=== PATIENT | male | born 1980 | race Caucasian/White ===

== ENCOUNTER 2025-06-27 22:59 | Inpatient (IN) | payer BC, SELFPAY ==
[2025-06-27] VITALS (30 sets, daily range): BP systolic 108–174; BP diastolic 68–105; BMI 31.4
[2025-06-27] MEDS: XYLOCAINE VISCOUS CUP 15 ML PO (18:59)
[2025-06-27] MEDS: MAALOX 30 ML PO (18:59)
[2025-06-27] MEDS: PEPCID 40 MG PO (18:59)
--- NOTE | 2025-06-27 19:10 | ED.GENMED ---
History of Present Illness
General
Chief Complaint: Chest Problem
Time Seen by Provider: 06/27/25 18:11
History of Present Illness
History of Present Illness:
45-year-old male with history of anxiety and hypertension presenting to the emergency department for burning discomfort in his chest. Patient reports that he woke up with burning discomfort in his midsternal chest which has progressed throughout
the day. Pain has overall improved. Does note history of indigestion in the past. Denies known cardiac history. Has seen a outpatient coder in the past due to similar symptoms and palpitations, reportedly normal stress test. Denies any radiation of
pain. Denies any difficulty breathing. Denies any diaphoresis or vomiting. Does note that last night he had [employer]. Denies additional acute medical complaints
Phy Exam
Physical Exam
Physical Exam:
General: Well-appearing, no clinical signs of dehydration, nontoxic and in no acute distress
HEENT: protecting airway
Neck: appears supple
CV: Normal heart rate, regular rhythm
Resp: No accessory muscle use, no increased work of breathing, lungs clear to auscultation bilaterally
Abd: Soft and non-distended, no tenderness to palpation
Extremities: No deformities, no swelling
Neuro: alert, no focal neurologic deficit
: deferred
Rectal: deferred
Psych: Normal affect
Skin: Intact
Scores
Heart Score for Chest Pain Patients
STEMI patient?: No
History: Slightly or Non-Suspicious
ECG: Normal
Age: >45 - <65 years
Risk Factors: 1 or 2 Risk Factors
Troponin: </= Normal Limit
Heart Score for Chest Pain Patients: 2
Heart Score Risk: 2.5% MACE over next 6 weeks
Course
Orders/Labs/Results
Orders:
Orders
06/27/25 17:33
Electrocardiogram (*1) Urgent
Reason for Study: Chest Pain
EKG- Treatment ONCE
06/27/25 18:33
Famotidine [Pepcid] 40 mg PO NOW STA
Mag Hydrox/Al Hydrox/Simeth [Maalox] 30 ml PO NOW STA
Viscous Lidocaine 2% [Xylocaine Viscous Cup] 15 ml PO ONCE ONE
06/27/25 18:58
Complete Blood Count/With Diff Urgent
Comprehensive Metabolic Panel Urgent
Troponin I Urgent
06/27/25 20:12
Aspirin Chewable [Low Strength Aspirin] 324 mg PO NOW STA
06/27/25 20:23
Nitroglycerin Sublingual [Nitrostat (Sublingual)] 0.4 mg SL [id number] PRN
06/27/25 20:29
CT Chest/abd/pelvis Angio W/wo Urgent
Comment:
Reason For Exam: r/o dissection
06/27/25 20:32
EKG- Treatment ONCE
06/27/25 20:33
D-Dimer Urgent
Fentanyl, Urine Urgent
PTT Urgent
Comment: Obtain baseline before beginning heparin infusion if not already collected
Troponin I Urgent
Urine Drug Abuse Screen Urgent
Date Specimen was Collected: 06/27/25
Time Specimen was Collected: 20:32
06/27/25 21:02
Electrocardiogram (*1) Urgent
Reason for Study: Chest Pain
EKG- Treatment ONCE
06/27/25 21:27
Nitroglycerin 100 mg/250 ml [Nitroglycerin Premix] 100 mg in 250 ml IV NOW
Currently infusing. Continue current dose and titrate:: Yes
Titrate to keep:: Chest Pain Free
Titrate by mcg/min:: 5 mcg/min, may increase by 10 mcg/min if dose > 20 mcg/min
Frequency of titrations (minutes):: every 3-5 minutes
Maximum dose in mcg/min:: 200
Begin to taper infusion when:: Remained at goal for 2hrs
Taper by mcg/min:: 5 mcg/min
Frequency of taper (minutes) if patient maintains goal:: 30
Taper to off?: Yes
If infusion off & no longer maintaining goal:: Contact Provider
06/27/25 21:46
Heparin 4,000 units IV NOW STA
Nursing to Place Non Medication Order As Directed
Physician Order: PTT 6 hours after initial start of Heparin infusion
Above order entered?: Yes
06/27/25 22:00
Electrocardiogram (*1) Urgent
Reason for Study: Chest Pain
Heparin 88424 Units/250 ml 25,000 units in 250 ml IV PER PROTOCOL
Weight to be used for heparin protocol in kilograms (kg):: 105
Protocol:: Cardiac Tx/Acute Coronary
PTT Goal Range to be used:: PTT 73 to 111 seconds
Order type:: Initial
INITIAL Infusion Dose (UNITS/KG/hr) & then follow protocol:: 12 units/kg/hr
Infusion Dose in UNITS/hr & then follow protocol (UNITS/hr):: 1,000
INFUSION RATE in mL/hr & then follow protocol (mL/hr):: 10
PTT less than or equal to 64 seconds:: Increase rate by 200 units/hr (+ 2 mL/hr)
PTT 64.1 to 72.9 seconds:: Increase rate by 100 units/hr (+ 1 mL/hr)
PTT 73 to 111 seconds:: Target Range. No change in rate.
PTT 111.1 to 130.9 seconds:: Decrease rate by 100 units/hr (- 1 mL/hr)
PTT 131 to 199.9 seconds:: HOLD for 1 hr. Then decrease rate by 200 units/hr (- 2 mL/hr)
PTT greater than or equal to 200 seconds:: HOLD for 2 hrs & Notify Provider. Then decrease by 200 units/hr (-
2 mL/hr)
Lab follow-up:: Each change, PTT q6h until 2 consecutive are therapeutic. Then PTT
daily.
06/28/25 04:00
PTT Routine
Abnormal Lab Results
06/27/25 06/27/25
18:58 20:33
RBC 4.47 L 10^6/uL
(4.70-6.10)
Absolute Neuts (auto) 8.0 H 10^3/uL
(1.4-6.5)
Absolute Monos (auto) 0.7 H 10^3/uL
(0.1-0.6)
Neutrophils % 78.0 H %
(42.2-75.2)
Lymphocytes % 14.3 L %
(20.5-51.1)
Sodium 134 L mmol/L
(135-145)
Glucose 103 H mg/dl
(70-99)
AST 153 H U/L
(17-59)
Troponin I 10.300 H* ng/ml 14.400 H* D ng/ml
Ur Oxycodone Screen Positive H
(Negative)
06/27/25 18:58
06/27/25 18:58
Vital Signs
Initial and Last Documented VS:
Initial Vital Signs
Temp Pulse Resp BP Pulse Ox
98.8 F 103 16 174/105 99
06/27/25 17:31 06/27/25 17:31 06/27/25 17:31 06/27/25 17:31 06/27/25 17:31
Last Documented Vital Signs
Temp Pulse Resp BP Pulse Ox
98.8 F 69 11 128/92 92
06/27/25 17:31 06/27/25 22:15 06/27/25 22:15 06/27/25 22:10 06/27/25 22:15
MDM/Problems Addressed
MDM/Problems Addressed:
45-year-old male with history of anxiety and hypertension presenting for midsternal chest burning. Vital signs on arrival are significant for hypertension and tachycardia, however improved without intervention. Patient also noted to be anxious
upon arrival.
On exam, patient is resting comfortably, no acute distress. Unremarkable cardiac and pulmonary exam. EKG obtained on arrival, which does show some ST depressions inferiorly, however without significant change from prior. Overall suspect likely
gastric pathology as etiology of patient's symptoms. Lower suspicion for ACS. Patient however does have some cardiac risk factors so we will screen further with laboratory analysis and troponin. Will treat with a GI cocktail and reassess for
improvement.
20:00 - Patient's troponin is elevated at 10 with concern for NSTEMI. Will repeat EKG.
20:15- Repeat EKG unchanged. Patient is still having some chest pain with concern at this time for NSTEMI. In discussion with cardiology, recommendation for CT chest to rule out dissection, as well as D-dimer. Will obtain. Will try nitro for
pain control.
21:45 - Pain is slightly improved after stopping all nitro, starting nitro drip. Troponin is now increased to 14. EKG still without STEMI criteria, however subtle elevation to aVR. In discussion with cardiology, recommending heparin, will come in
to evaluate with likely plan for catheterization tonight
22:10 -cardiology to bedside with plan for catheterization.
*Pulse Oximetry
SaO2: 99
Oxygen Mode of Delivery: Room air
Patient hypoxic: no
*EKG
Interpreted by ED Provider?: Yes
EKG Intrepretation Date: 06/27/25
EKG Intrepretation Time: 19:12
Interpretation: normal
Comparison EKG: no changes (06/15/22)
Heart Rate: 87
Rate: normal
Rhythm: sinus
[place]: normal axis
Interval: normal interval
QRS Pattern: normal QRS
Ischemia: non-specific ST changes
*Critical Care Note
Total Time (30-74mins, 75-104mins- exclusive of procedures): 65
comment:
The high probability of a clinically significant, sudden or life threatening deterioration of the cardiovascular system(s), NSTEMI, required my full and direct attention, intervention and personal management. The aggregate critical care time was 40
minutes. This time is in addition to time spent performing reported procedures but includes the following:
[x] Data Review and interpretation
[x] Patient assessment and monitoring of vital signs
[x] Documentation
[x] Medication orders and management
ED Attending Note
-
Portions of this chart may have been created with voice recognition software.� Occasional wrong word or��sound alike� substitutions may have occurred due to the inherent limitations of voice recognition software.
Discharge Plan
Departure
Referrals:
Rip Rucker DO [Family Provider, [facility]]
Interventions
Interventions:
*Risk Screen - Suicide Last Done: 06/27/25 18:26
*Neglect/Abuse Screening Last Done: 06/27/25 18:26
*ED- Fall Risk Assessment Last Done: 06/27/25 18:26
*ED COVID-19 Vaccine History Last Done: 06/27/25 18:26
*ED Influenza Vaccine History Last Done: 06/27/25 18:26
ED- Cardiac Assessment Last Done: 06/27/25 18:26
ED- Pulmonary Assessment Last Done: 06/27/25 18:26
Discharge Date and Time
Print Language: ARABIC
[2025-06-27 19:14] LABS: Hematocrit 39.5 % (39.0-52.0); Hemoglobin 13.5 g/dL (13.0-18.0); Mean Corp Hgb Conc. 34.2 g/dL (33.0-37.0); Mean Corpuscular Volume 88.4 fL (80.0-94.0); Nucleated Red Blood Cells % 0 % (-); Platelet Count 234 10^3/uL (130-400); Red Cell Dist. Width 12.3 % (11.5-14.5)
[2025-06-27 19:34] LABS: ALT (SGPT) 46 U/L (0-50); AST (SGOT) 153 U/L (17-59); Albumin 4.5 g/dl (3.5-5.0); Alkaline Phosphatase 43 U/L (38-126); Blood Urea Nitrogen 10 mg/dl (9-20); Calcium 9.5 mg/dl (8.4-10.2); Carbon Dioxide 27 mmol/L (22-30); Chloride 103 mmol/L (98-107); Glucose 103 mg/dl (70-99); Potassium 4.4 mmol/L (3.5-5.1); Sodium 134 mmol/L (135-145); Total Protein 7.3 g/dl (6.3-8.2); eGFR > 60.00
[2025-06-27 19:50] LABS: Troponin I 10.300 ng/ml
[2025-06-27] MEDS: LOW STRENGTH ASPIRIN 324 MG PO (20:18)
[2025-06-27] MEDS: NITROSTAT (SUBLINGUAL) 0.4 MG SL ×3 (20:34→21:20)
[2025-06-27 20:54] LABS: D-Dimer 0.33 ug/mlFEU (0.00-0.50)
[2025-06-27 21:11] LABS: Troponin I 14.400 ng/ml
[2025-06-27] MEDS: NITROGLYCERIN PREMIX 250 IV (21:55)
[2025-06-27] MEDS: HEPARIN 4000 UNITS IV (21:56)
[2025-06-27] MEDS: HEPARIN 25000 UNITS/250 ML IV (21:59)
--- NOTE | 2025-06-27 22:20 | CON.CAR ---
Consultation
Consultation Request
Date/Time Consultation Requested: June 27, 2025
Date/Time Consultation Performed: June 27, 2025
Requesting Provider: Emergency department
Performing Provider: Dr Rip Porter
Reason for Consultation: Non-ST segment elevation myocardial infarction
Medical History
-
Chief Complaint: Chest burning
History of Present Illness:
45-year-old male who presents to the emergency department approximately 12 hours after onset of chest burning sensation which started approximately 8 AM.
He tells me he essentially woke up with the pain. He describes that due to the pain he really did not exert himself much but with routine activity/walking around his house pain did not worsen. He feels pain may have improved somewhat but not
resolved when he would lay flat. He denies any trauma to his chest. He denies any fevers chills night sweats.
Evaluation in the emergency department has included assessment of troponin with initial troponin of 10. Attempts to make him pain-free included sublingual and then intravenous nitroglycerin which improved but did not cause resolution of his pain
(pain reduced from a 6 or 7 down to a 3). He has also been on intravenous heparin after receiving aspirin.
Initial EKG with minimal ST depression in the inferior leads as well as ST elevation in aVR and second EKG is similar.
D-dimer is within the normal range.
CT scan of the chest with and without contrast finds no aortic dissection or other acute aortic syndromes. Coronary artery calcifications are noted. There is also the finding of ' well-circumscribed low-attenuation cystic lesion measuring 6 x 5.4
x 3.9 cm in the middle posterior mediastinum, subcarinal in location, to the right of the esophagus and posterior to the heart without enhancement or soft tissue nodularity'. It is noted that this may reflect a bronchogenic cyst, pericardial cyst
or esophageal duplication cyst possibly other congenital cyst.
Cardiology evaluation is requested by the emergency department.
Tox screen obtained. Only positive is oxycodone. Patient describes that he has had chronic low back pain for which he occasionally does take oxycodone denies cocaine and other stimulants.
Past Medical History
Past Medical History: None
Social History
Tobacco: Former Smoker (Smoked for 14 years approximately half a pack per day, stopped 3 years ago)
Alcohol: None (Denies)
Drug: None (Denies, however oxycodone level is positive)
Personal:
Living: With Family
Family History
Family History: Reviewed & Not Pertinent
Allergies / Home Medications
Allergy/AdvReac Type Severity Reaction Status Date / Time
No Known Allergies Allergy Verified 06/27/25 17:33
Review of Systems
-
History Source: Patient
All other systems: Negative unless noted
Constitutional: No Symptoms
EENT: No Symptoms
Respiratory: No Symptoms
Cardiac: Chest Pain
Abdomen/GI: No Symptoms
: No Symptoms
Musculoskeletal: No Symptoms
Skin: No Symptoms
Neurological: No Symptoms
Endocrine: No Symptoms
Hematologic/Lymphatic: No Symptoms
Physical Exam
Vital Signs
Temp Pulse Resp BP Pulse Ox
98.8 F 70 19 126/89 99
06/27/25 17:31 06/27/25 22:05 06/27/25 22:05 06/27/25 22:05 06/27/25 22:05
Lab Results
06/27/25 18:58
06/27/25 18:58
Troponin I 14.400 ng/ml H* D 06/27/25 20:33
Physical Exam
General: Well Developed, Well Nourished and No Apparent Distress (He is laying in the stretcher in the emergency department bed smiling and appears comfortable.)
HEENT: Normocephalic, Anicteric and Moist Mucous Membranes
Respiratory: Clear and Non Labored Respirations
Cardiac: S1/S2, Regular Rhythm and Murmur (Grade 1/6 apical holosystolic murmur and no rubs)
Breast: Deferred by me
GI: Soft, Non Tender, Non Distended and Normal Bowel Sounds
Rectal: Deferred by Provider
Musculoskeletal: No Clubbing, No Cyanosis and No Edema
Skin: Warm and Dry
Neuro: Awake, Alert, Oriented, AO x 3 and No Motor Deficits
Psych: Calm
Impression / Plan
-
Impression:
Concern for acute coronary syndrome
While his chest pain is somewhat atypical, chest pain improved but not completely resolved with antianginals including intravenous nitroglycerin which he is now on and in addition he has had rising troponins (10 --> 14) with abnormal ECGs. CT scan
of the chest shows no aortic dissection and no pericardial effusion. D-dimer is within the normal range.
While it is not clear that this is an acute coronary syndrome, there is enough concern with ongoing chest pain and rising troponin values and no other clear etiology that this may indeed be an acute coronary syndrome.
Will plan for urgent coronary angiography
Continue IV nitroglycerin titrated to attempt to make him pain-free
Continue IV heparin
Further evaluation and management decisions once we have results of coronary angiography
Check fasting lipid profile in AM
Of note, there is this likely incidental finding of 'well-circumscribed low-attenuation cystic lesion measuring 6 x 5.4 x 3.9 cm in the middle posterior mediastinum, subcarinal in location, to the right of the esophagus and posterior to the heart
without enhancement or soft tissue nodularity' which may require her further evaluation at some point, either inpatient or outpatient.
Discussed with patient, discussed with ER physician and also discussed with nursing home admissions director.
Total time spent today was 75 minutes in preparing to see the patient, seeing the patient and coordination of care. This included review of recent laboratory evaluations, cardiact testing, imaging studies, primary care records, specialty
consultations, hospital records, as well as personally interviewing and examining the patient, which included discussion of their tests, review/ordering medications, and communicating with other healthcare professionals and also treatment planning
as well as counseling.
Total time does not include separately billed tests performed on this date of service.
Data Reviewed
-
EKG: Tracing Personally Visualized and interpreted
Radiology: Image Personally Visualized and interpreted and Report Reviewed by me
CT Scan: Image Personally Visualized and interpreted and Report Reviewed by me
Labs: Labs Reviewed by me, Discussed with Physician and Discussed with Patient
[2025-06-27 22:23] LABS: APTT 25.1 Sec (23.4-35.0)
[2025-06-27 23:38] LABS: ACT-LR - POC 237 Seconds (116-155)
--- NOTE | 2025-06-27 23:56 | ITS.CL.ANGIO ---
Public Space Attendant - Angioplasty
Angioplasty
Procedure Report:
LEFT HEART CATHETERIZATION
Date of Procedure: June 27, 2025
Procedures performed:
1: Coronary angiography
2: Left ventriculography
3: Percutaneous coronary intervention of the right coronary artery with placement of a 3.5 x 26 mm [place] drug-eluting stent postdilated at high-pressure with a 3.75 mm diameter noncompliant balloon
Primary Care Provider: Dr. Rip Rucker
Primary Training Specialist: Dr. Rip Porter
INDICATION: The patient is a 45-year-old male with no past medical history presents with atypical chest pain which has persisted throughout the day. EKG is benign but cardiac enzymes are rising and chest pain has persisted so we elected to proceed
with cardiac catheterization.
ACCESS: The patient was prepped and draped in usual sterile fashion. A 6 Cym[place]es sheath was placed in the right radial artery using the Seldinger over the wire technique.
HEMODYNAMIC FINDINGS (mmHg):
LV(s/d,EDP): 125/17, 29
Ao(s/d,m): 120/84, 101
ANGIOGRAPHIC FINDINGS:
Single-plane Left Ventriculography in VALDEZ Projection: Mild anterolateral hypokinesis. Subtle angiographic suggestion of lateral hypokinesis on the VALDEZ projection. Overall visually estimated ejection fraction 50%. No significant mitral
regurgitation.
Coronary Angiography:
Dominance: Right
Left Main: Large-caliber with mild smooth ostial 30% stenosis.
Left Anterior Descending: The left anterior descending artery is a relatively large caliber vessel that gives rise to 1 major bifurcating diagonal branch that takes off from the midportion. The mid LAD has a smooth 50 to 60% stenosis just before
the takeoff of the major diagonal branch. All vessels have normal distal flow.
Left Circumflex: The left circumflex is a relatively large caliber nondominant vessel that is occluded in the proximal/mid segment. Faint filling of a large distal OM is noted.
Right Coronary: The right coronary artery is a large-caliber dominant vessel that gives rise to a large caliber posterior descending artery and 2 large caliber posterior left ventricular branches. These vessels have mild luminal irregularities with
no evidence of focal obstructive disease.
Percutaneous Coronary Intervention (PCI): In light of the above angiographic findings, I elected to proceed with a PCI of the culprit circumflex. The patient had been pretreated with aspirin and unfractionated heparin. Additional unfractionated
heparin was given. A loading dose of ticagrelor was given at the end of the procedure on the table. A double bolus of Integrilin was given due to the high thrombus burden. A 6 Cymraes XB 3.5 guiding catheter was used to engage the left main. A
Hi-Torque floppy wire was advanced across the occlusion and predilation was performed with a 2.5 mm balloon. Next a 3.5 x 26 mm [place] drug-eluting stent was deployed primarily into the largest distal branch. The stent was postdilated with a 3.75 mm
diameter noncompliant balloon inflated to 18 rio. This was done in a distal to proximal fashion taking care to stay within the stented margins.
FINAL RESULT: 0% in-stent residual stenosis with an outstanding angiographic result and FANNY-3 flow in all major distal vessels. There were some small jailed vessels that have sluggish flow noted.
Fluoroscopy Time (min): 8.7
Radiation Dose (mGy): 875
DAP (Gy.cm2): 55
Closure device: None. A TR band was applied for hemostasis at the right wrist.
Complications: None.
ASSESSMENT:
1: Successful PCI of the culprit circumflex occlusion with placement of a drug-eluting stent as described above.
2: Elevated left ventricular filling pressures.
3: Preserved to mildly depressed LV systolic function.
CONCLUSIONS and RECOMMENDATIONS:
1: Routine post non-STEMI and post drug-eluting stent medical therapy and monitoring. Continue ticagrelor 90 mg p.o. twice daily and aspirin.
2: Serial cardiac enzymes and telemetry monitoring.
3: Medical therapy for coronary artery disease.
Dorothea Durbin M.D.
[2025-06-28] VITALS (10 sets, daily range): BP systolic 129–159; BP diastolic 77–93; PULSE 68; BMI 32.0
[2025-06-28] MEDS: NSS 1000 IV (02:58)
[2025-06-28] MEDS: LIPITOR 80 MG PO ×2 (02:59→17:16)
[2025-06-28 03:20] LABS: APTT 60.2 Sec (23.4-35.0)
[2025-06-28 03:29] LABS: Blood Urea Nitrogen 9 mg/dl (9-20); Calcium 9.2 mg/dl (8.4-10.2); Carbon Dioxide 26 mmol/L (22-30); Chloride 105 mmol/L (98-107); Estimated Creatinine Clearance > 125 ml/min; Glucose 135 mg/dl (70-99); HDL Cholesterol 57 mg/dl; LDL Cholesterol, Calculated 150 mg/dl; Magnesium 2.1 mg/dl (1.6-2.3); Potassium 4.2 mmol/L (3.5-5.1); Sodium 136 mmol/L (135-145); Very Low Density Lipoprotein 14 mg/dl (0-30); eGFR > 60.00
--- NOTE | 2025-06-28 03:40 | PTCARENOTE ---
Pt admitted to room 2244 post cath at approx 0015. aaox3, R wrist R band intact and inflated, good radial pulses, right hand pink and warm, Pox 98%. Post procedure EKG obtained. Pt c/o pain 2-3/10 mid chest stating 'It feels a lot better than
before but still have some pain'. Dr. Durbin at bedside to see pt after procedure. IVF's ordered and infusing. SR on tele monitor, HR 60-70's. Pt oriented to room and call light, updated on POC and in agreement. Call holt within reach.
[2025-06-28 04:01] LABS: TSH 0.08 uIU/ml (0.47-4.68)
[2025-06-28 04:12] LABS: Troponin I 130.000 ng/ml
[2025-06-28] MEDS: ASPIR LOW (ENTERIC COATED) 81 MG PO (09:23)
[2025-06-28] MEDS: COZAAR 25 MG PO (09:23)
[2025-06-28] MEDS: BRILINTA 90 MG PO ×2 (09:23→19:37)
[2025-06-28 09:24] LABS: Troponin I 50.000 ng/ml
--- NOTE | 2025-06-28 09:41 | W.PN.CARDCBS ---
Today's Communication / Plan
-
Continue post PCI medical management
Check echocardiogram in the morning
Impression / Plan
-
Impression/plan:
Non-ST segment elevation myocardial infarction
Successful PCI of culprit left circumflex occlusion with placement of drug-eluting stent
Troponin peaked to 130 with subsequent troponin down to 50 this morning
ECG stable right bundle branch block
Continued ticagrelor 90 mg p.o. twice daily and aspirin 81 mg daily
Atorvastatin 80 mg daily
Check echocardiogram on Sunday
Essential hypertension
Blood pressure better controlled on losartan 25 mg daily, continue
There is incidental finding of 'well-circumscribed low-attenuation cystic lesion measuring 6 x 5.4 x 3.9 cm in the middle posterior mediastinum, subcarinal in location, to the right of the esophagus and posterior to the heart without enhancement or
soft tissue nodularity'
There can be consideration for further evaluation at some point, likely as outpatient
Discussed with patient as well as his family at the bedside. All of their questions have been answered.
Total time spent today was 51 minutes in preparing to see the patient, seeing the patient and coordination of care. This included review of recent laboratory evaluations, cardiact testing, imaging studies, primary care rtecords, specialty
consultations, hospital records, as well as personally interviewing and examining the patient, which included discussion of their tests, review/ordering medications, and communicating with other healthcare professionals and also treatment planning
as well as counseling.
Total time does not include separately billed tests performed on this date of service.
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
Subjective
Date of Service: June 28, 2025
He tells me that he feels great this morning, no further chest pain. No shortness of breath.
Objective
Labs:
06/27/25 18:58
06/28/25 02:53
Labs
Hgb 13.5 g/dL (13.0-18.0) 06/27/25 18:58
Hct 39.5 % (39.0-52.0) 06/27/25 18:58
Plt Count 234 10^3/uL (130-400) 06/27/25 18:58
APTT 60.2 Sec (23.4-35.0) H 06/28/25 02:53
Sodium 136 mmol/L (135-145) 06/28/25 02:53
Potassium 4.2 mmol/L (3.5-5.1) 06/28/25 02:53
BUN 9 mg/dl (9-20) 06/28/25 02:53
Creatinine 0.8 mg/dL (0.7-1.3) 06/28/25 02:53
Glucose 135 mg/dl (70-99) H 06/28/25 02:53
Troponins
06/27/25 06/27/25 06/28/25
18:58 20:33 02:53
Troponin I 10.300 H* 14.400 H* D 130.000 H* D
06/28/25 06/28/25
06:00 08:48
Troponin I Cancelled 50.000 H* D
Vital Signs and I&O:
Vital Signs
Temp Pulse Resp BP Pulse Ox
98.9 F 84 17 127/83 99
06/28/25 07:09 06/28/25 07:09 06/28/25 07:09 06/27/25 23:00 06/28/25 07:09
Vital Signs
Temp Pulse Resp BP Pulse Ox
98.9 F 84 17 127/83 99
06/28/25 07:09 06/28/25 07:09 06/28/25 07:09 06/27/25 23:00 06/28/25 07:09
Intake & Output
06/26/25 06/27/25 06/28/25 06/29/25
06:59 06:59 06:59 06:59
Intake Total 500 / 500
Output Total 1000 / 1000
Balance -500 / -500
Physical Exam
Physical Exam
Well-appearing, sitting up in bed smiling no acute distress.
Regular rate and rhythm normal S1 and S2 no S3 no S4 is grade 1/6 apical holosystolic murmur no rubs
lung clear to auscultation bilaterally without wheezes rales or rhonchi
Abdomen soft nontender nondistended with normoactive bowel sounds
Extremities no clubbing cyanosis or edema
Neurologic exam is nonfocal
--- NOTE | 2025-06-28 14:09 | PTCARENOTE ---
Assumed care of the pt @ 0700. Pt is AAOx3 SR on the monitor VSS. Denies cp. POC discussed with pt. verbalized understanding. Call holt within reach.
[2025-06-28 15:24] LABS: Troponin I 30.500 ng/ml
--- NOTE | 2025-06-28 21:13 | PTCARENOTE ---
Patient received at change of shift resting in the bed. Denies chest pain or pressure at this time. Sinus rhythm on telemetry. Oxygen saturation 99% on room air. Right radial cath site with gauze and tegaderm C/D/I, radial pulse palpable. Call holt
within reach. Plan of care discussed. Call holt within reach. Care ongoing.
[2025-06-29 03:02] VITALS: BP 124/94
[2025-06-29 03:12] VITALS: BP 129/91
[2025-06-29 03:37] LABS: Hematocrit 45.3 % (39.0-52.0); Hemoglobin 15.4 g/dL (13.0-18.0); Mean Corp Hgb Conc. 34.0 g/dL (33.0-37.0); Mean Corpuscular Volume 90.8 fL (80.0-94.0); Nucleated Red Blood Cells % 0 % (-); Platelet Count 258 10^3/uL (130-400); Red Cell Dist. Width 12.8 % (11.5-14.5)
[2025-06-29 04:00] LABS: Blood Urea Nitrogen 13 mg/dl (9-20); Calcium 9.4 mg/dl (8.4-10.2); Carbon Dioxide 26 mmol/L (22-30); Chloride 108 mmol/L (98-107); Estimated Creatinine Clearance > 125 ml/min; Glucose 109 mg/dl (70-99); Magnesium 2.3 mg/dl (1.6-2.3); Potassium 4.8 mmol/L (3.5-5.1); Sodium 139 mmol/L (135-145); eGFR > 60.00
[2025-06-29 04:15] LABS: Troponin I 19.300 ng/ml
[2025-06-29 08:03] LABS: ACT-LR - POC > 397 Seconds (116-155)
--- NOTE | 2025-06-29 08:15 | PTCARENOTE ---
Assumed care of pt from prev nsg shift; Pt AAOX3 w/no c/o CP or SOB. Pt's VSS w/HR in the 80's & BP 121/97 this AM. Pt w/R radial site URBANO w/no signs or symptoms of bleeding or hematoma. Pt awaiting ECHO this AM & anticipating D/C today. Discussed
CAD booklet w/pt. Pt w/call holt within reach & plan ongoing.
[2025-06-29 08:21] VITALS: BP 140/95
[2025-06-29 08:22] VITALS: BP 121/97
--- NOTE | 2025-06-29 09:19 | W.PN.CARDCBS ---
Addendum entered and electronically signed by Leyla Dean PA-C 06/29/25 13:45:
dictated d/c summary, #[id number]
Addendum entered and electronically signed by Leyla Dean PA-C 06/29/25 12:53:
Below documentation for stent size should be 3.5 x 26 mm size throughout note
Addendum entered and electronically signed by Jacob Munguia MD 06/29/25 10:53:
I saw and examined the patient.
The FAMILY HELPER or PA's note was reviewed and I agree with the note.
Comment: General: Well developed, well nourished in NAD.
Neck: Supple, no JVD, HJR, carotids +2 B/L, no bruits bilaterally.
Heart: Non displaced PMI, RRR, no murmurs, No S3, S4, no rubs.
Lungs: Clear to auscultation bilaterally, no wheeze, rhonchi, rubs bilaterally,
normal expiratory phase.
Extremities: No clubbing, cyanosis or edema bilaterally.
Neuro: Grossly nonfocal, awake, alert and oriented x3.
EF normal. Stable cardiology status for discharge. Discussion with patient and at bedside. Follow-up will be arranged
Original Note:
Today's Communication / Plan
-
Continue aspirin and Brilinta for 1 year uninterrupted
New to atorvastatin
Start Toprol, continue lisinopril
Cardiac rehab consultation
Echo pending if stable anticipate discharge later today
Impression / Plan
-
PCP: Rip Rucker
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 Rip Porter
Impression:
Presented 06/27/2025 with persistent chest pain
Non-ST segment elevation myocardial infarction, with abnormal troponin peaked 130
Successful PCI of culprit left circumflex occlusion with placement of drug-eluting stent 2.5 x 26 mm [place] SYADA 06/27/2025
Troponin peaked to 130 with subsequent troponin down to 50 this morning
Incidental finding of low-attenuation cystic lesion in middle posterior mediastinum, subcarinal location
Right bundle branch block
Hypertension
Cardiac catheterization 06/27/2025: LM ostial 30% smooth stenosis. LAD: Smooth 50 to 60% mid stenosis before takeoff of major diagonal. Left circumflex: Proximal/mid occlusion s/p 3.5 x 26 mm [place] SAYDA. RCA: LI. Left Ventriculography in VALDEZ
Projection: Mild anterolateral hypokinesis. Subtle angiographic suggestion of lateral hypokinesis on the [place] projection. Overall visually estimated ejection fraction 50%. No significant mitral regurgitation. HEMODYNAMIC FINDINGS (mmHg):
LV(s/d,EDP): 125/17, 29; Ao(s/d,m): 120/84, 101
Echo 06/29/2025: Pending but preliminary report EF 50 to 55% with lateral hypokinesis
Plan:
Presented 06/27/2025 with persistent chest pain and ruled in with NSTEMI
Successful PCI of culprit left circumflex occlusion with placement of drug-eluting stent 2.5 x 26 mm [place] SAYDA 06/27/2025
Troponin peaked to 130 with subsequent troponin down to 19.3 this morning 06/29
Continued ticagrelor 90 mg p.o. twice daily and aspirin 81 mg daily, uninterrupted for 1 year
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
ECG stable showing sinus rhythm w/ right bundle branch block, repeat this am
Echo pending
Cardiac rehab consultation
Hyperlipidemia prestatin lipids 06/28/2025 : TC 221, HDL 57, LDL 150, triglycerides 74. Now on high dose atorvastatin 80 mg daily
Check hemoglobin A1c - pending
Essential hypertension
Blood pressure better controlled on losartan 25 mg daily, continue
There is incidental finding of 'well-circumscribed low-attenuation cystic lesion measuring 6 x 5.4 x 3.9 cm in the middle posterior mediastinum, subcarinal in location, to the right of the esophagus and posterior to the heart without enhancement or
soft tissue nodularity'
There can be consideration for further evaluation at some point, likely as outpatient
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
If echo stable anticipate discharge later today
Outpatient cardiology follow-up has been arranged
Admission HPI 06/27/2025:
45-year-old male who presents to the emergency department approximately 12 hours after onset of chest burning sensation which started approximately 8 AM.
He tells me he essentially woke up with the pain. He describes that due to the pain he really did not exert himself much but with routine activity/walking around his house pain did not worsen. He feels pain may have improved somewhat but not
resolved when he would lay flat. He denies any trauma to his chest. He denies any fevers chills night sweats.
Evaluation in the emergency department has included assessment of troponin with initial troponin of 10. Attempts to make him pain-free included sublingual and then intravenous nitroglycerin which improved but did not cause resolution of his pain
(pain reduced from a 6 or 7 down to a 3). He has also been on intravenous heparin after receiving aspirin.
Initial EKG with minimal ST depression in the inferior leads as well as ST elevation in aVR and second EKG is similar.
D-dimer is within the normal range.
CT scan of the chest with and without contrast finds no aortic dissection or other acute aortic syndromes. Coronary artery calcifications are noted. There is also the finding of ' well-circumscribed low-attenuation cystic lesion measuring 6 x 5.4
x 3.9 cm in the middle posterior mediastinum, subcarinal in location, to the right of the esophagus and posterior to the heart without enhancement or soft tissue nodularity'. It is noted that this may reflect a bronchogenic cyst, pericardial cyst
or esophageal duplication cyst possibly other congenital cyst.
Cardiology evaluation is requested by the emergency department.
Tox screen obtained. Only positive is oxycodone. Patient describes that he has had chronic low back pain for which he occasionally does take oxycodone denies cocaine and other stimulants
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
Subjective
Date of Service: June 29, 2025
Patient seen and examined. Patient reports he is feeling well. No further chest discomfort or problems with shortness of breath. He has been able to ambulate around the unit without difficulty.
Objective
Labs:
06/29/25 03:10
06/29/25 03:10
Labs
Hgb 15.4 g/dL (13.0-18.0) 06/29/25 03:10
Hct 45.3 % (39.0-52.0) 06/29/25 03:10
Plt Count 258 10^3/uL (130-400) 06/29/25 03:10
APTT 60.2 Sec (23.4-35.0) H 06/28/25 02:53
Sodium 139 mmol/L (135-145) 06/29/25 03:10
Potassium 4.8 mmol/L (3.5-5.1) 06/29/25 03:10
BUN 13 mg/dl (9-20) 06/29/25 03:10
Creatinine 0.9 mg/dL (0.7-1.3) 06/29/25 03:10
Glucose 109 mg/dl (70-99) H 06/29/25 03:10
Troponins
06/27/25 06/27/25 06/28/25
18:58 20:33 02:53
Troponin I 10.300 H* 14.400 H* D 130.000 H* D
06/28/25 06/28/25 06/28/25
06:00 08:48 14:41
Troponin I Cancelled 50.000 H* D 30.500 H* D
06/29/25
03:10
Troponin I 19.300 H*
Vital Signs and I&O:
Vital Signs
Temp Pulse Resp BP Pulse Ox
97.8 F 86 16 121/97 99
06/29/25 08:20 06/29/25 08:22 06/29/25 08:20 06/29/25 08:22 06/29/25 08:20
Vital Signs
Temp Pulse Resp BP Pulse Ox
97.8 F 86 16 121/97 99
06/29/25 08:20 06/29/25 08:22 06/29/25 08:20 06/29/25 08:22 06/29/25 08:20
Intake & Output
06/27/25 06/28/25 06/29/25 06/30/25
06:59 06:59 06:59 06:59
Intake Total 500 / 500 960 / 960
Output Total 1000 / 1000
Balance -500 / -500 960 / 960
Physical Exam
Physical Exam
GEN: No distress, awake, Ox3
HEENT: supple, anicteric, mmm
LUNGS: CTA, no wheezes/rales
CV: Reg, S1/S2, no murmur, rub or gallop
ABD: soft, BS+, NT/ND
EXT: No edema, warm, dry, pink. Right radial access site without hematoma or ecchymosis. +2 radial and ulnar pulse with good hand perfusion
NEURO: Gross non-focal
SKIN: No rash, warm, dry, pink
[2025-06-29] MEDS: BRILINTA 90 MG PO (10:13)
[2025-06-29] MEDS: ASPIR LOW (ENTERIC COATED) 81 MG PO (10:13)
[2025-06-29] MEDS: COZAAR 25 MG PO (10:13)
[2025-06-29 11:11] VITALS: BP 133/84
[2025-06-29] MEDS: TOPROL XL 25 MG PO (12:09)
--- NOTE | 2025-06-29 12:19 | CM ---
spoke to pt in room, he is prev indep, lives with his in a 2 smedically stable.t[address] home with 4 steps to enter. he denies any dc planning or dme's. plan is for dc to home when medically stable.
--- NOTE | 2025-06-29 13:00 | PTCARENOTE ---
D/C'd pt's IV line & surveillance system monitor. Discussed D/C instructions w/pt & pt's spouse. Pt walked out w/staff escort. Pt's spouse drove him home.
[2025-06-29 13:13] LABS: Glycohemoglobin (HgbA1c) 5.5 % (4.0-5.6)
--- NOTE | 2025-06-29 13:45 | W.DS.TRANS ---
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
-
Discharge Instructions:
Discharge Diagnosis/Procedures NSTEMI, Circumflex drug eluting stents
Diet Low Cholesterol
Additional Activity No lifting greater than 10 lbs for 3 days and
nothing greater than 25 lbs for 1 week
Driving Restrictions As prior to admission
Bathing Restrictions None
Other Services Cardiac Rehab
Instructions:
Stand-Alone Forms: DC Instructions- Cath/EP Lab
Changes to Home Medications: Yes
Discharge Medications:
DC Medications w/original date entered in [facility]
aspirin 81 mg tablet,delayed release 81 mg PO DAILY #1 tab 06/29/25
atorvastatin 80 mg tablet 80 mg PO QPM #90 tabs 06/29/25
lisinopril 10 mg tablet 10 mg PO DAILY Blood Pressure #90 tabs 06/29/25
metoprolol succinate 25 mg tablet,extended release 24 hr 25 mg PO DAILY #90 tabs 06/29/25
ticagrelor 90 mg tablet 90 mg PO BID #180 tabs 06/29/25
Home Medication Changes
New to ASA, Atorvastatin, Toprol, Ticagrelor
Pending Results: No
Additional Pending Results:
41
== END 2025-06-29 13:41 | disposition home or self-care (01) | DRG 322 ==
LOC: IVU 22:59
PROVIDERS: Internal Medicine Interventional Cardiology; ADMITTING PHYSICIAN Internal Medicine Cardiovascular Disease; EMERGENCY PHYSICIAN Student in an Organized Health Care Education/Training Program; FAMILY PHYSICIAN Family Medicine
PROC: 4A023N7 Measurement of Cardiac Sampling and Pressure, Left Heart, Percutaneous Approach (ICD-10-PCS; 2025-06-27)
PROC: B2111ZZ Fluoroscopy of Multiple Coronary Arteries using Low Osmolar Contrast (ICD-10-PCS; 2025-06-27)
PROC: 027034Z Dilation of Coronary Artery, One Artery with Drug-eluting Intraluminal Device, Percutaneous Approach (ICD-10-PCS; 2025-06-27)
DX: I21.4 Non-ST elevation (NSTEMI) myocardial infarction (principal); I10 Essential (primary) hypertension; F41.9 Anxiety disorder, unspecified; I25.10 Atherosclerotic heart disease of native coronary artery without angina pectoris; G89.29 Other chronic pain; M54.50 Low back pain, unspecified; I45.10 Unspecified right bundle-branch block; E78.5 Hyperlipidemia, unspecified; Z87.891 Personal history of nicotine dependence
CPT/HCPCS: 71275; 74174; 80048; 80053; 80061; 80306; 80307; 83036; 83735; 84439; 84443; 84484; 85025; 85347; 85379; 85730; 93005; 93306; 93458; 94660; 96365; 96367; 99291; C1725; C1769; C1874; C1887; C1894; C9600; J0153; J1327; Q9967

== ENCOUNTER 2025-07-24 16:06 | Outpatient (RCR) | payer BC, SELFPAY | END 2025-07-24 23:59 | disposition home or self-care (01) | LOC: CRHB 16:06 | PROVIDERS: ATTENDING PHYSICIAN Internal Medicine Cardiovascular Disease | DX: I25.2 Old myocardial infarction (principal); I25.10 Atherosclerotic heart disease of native coronary artery without angina pectoris (principal); Z95.5 Presence of coronary angioplasty implant and graft | CPT/HCPCS: 93797; 93798 ==

== ENCOUNTER 2025-08-19 09:42 | Outpatient (RCR) | payer BC, SELFPAY | END 2025-08-19 23:59 | disposition home or self-care (01) | LOC: CRHB 09:42 | PROVIDERS: ATTENDING PHYSICIAN Internal Medicine Cardiovascular Disease | DX: I25.10 Atherosclerotic heart disease of native coronary artery without angina pectoris (principal); I25.2 Old myocardial infarction (principal); Z95.5 Presence of coronary angioplasty implant and graft | CPT/HCPCS: 93797; 93798 ==

== ENCOUNTER 2025-09-07 09:31 | Outpatient (RCR) | payer BC, SELFPAY | END 2025-09-07 10:15 | disposition home or self-care (01) | LOC: CRHB 09:31 | PROVIDERS: ATTENDING PHYSICIAN Internal Medicine Cardiovascular Disease; FAMILY PHYSICIAN Family Medicine | DX: I25.10 Atherosclerotic heart disease of native coronary artery without angina pectoris (principal); I25.2 Old myocardial infarction (principal); I21.4 Non-ST elevation (NSTEMI) myocardial infarction (principal); Z95.5 Presence of coronary angioplasty implant and graft | CPT/HCPCS: 93797; 93798 ==